=== PATIENT | male | born 1995 | race Caucasian/White ===

== ENCOUNTER 2017-02-02 18:38 | Emergency (ER) | payer OTHER ==
[2017-02-02 18:58] VITALS: BP 115/54; PULSE 69; TEMP 97.9; BMI 19.8
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
[2017-02-02] MEDS ORDERED: IBUPROFEN 600 MG TABLET (FP) PO ONE (19:10)
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
[2017-02-02] MEDS ORDERED: DIPHTH,PERTUSS(ACELL),TET 0.5 ML DISP.SYRIN IM ONE (19:17)
== END 2017-02-02 21:00 | disposition left against medical advice (07) ==
LOC: JERFT 18:38
PROC: 3E0234Z Introduction of Serum, Toxoid and Vaccine into Muscle, Percutaneous Approach (ICD-10-PCS; principal; 2017-02-02)
DX: S80.02XA Contusion of left knee, initial encounter (principal); V43.62XA Car passenger injured in collision with other type car in traffic accident, initial encounter; Y93.89 Activity, other specified; Y92.410 Unspecified street and highway as the place of occurrence of the external cause
CPT/HCPCS: 72050-TC; 72070-TC; 73562-TC-LT; 90471; 90715; 99281-25